=== PATIENT | male | born 1980 | race Native Hawaiian/Other Pacific Islander ===

== ENCOUNTER 2022-09-30 12:16 | Outpatient (CLI) | payer OTHER ==
[2022-09-30 13:13] LABS: PLATELET COUNT 232 K/uL (142-355)
[2022-09-30 13:31] LABS: POTASSIUM 3.8 mmol/L (3.6-5.2)
== END 2022-09-30 19:04 | disposition home or self-care (01) ==
LOC: LABW 12:16 → EDBD 12:16 → LABW 19:04
PROVIDERS: ATTEND Nurse Practitioner Family
DX: R22.41 Localized swelling, mass and lump, right lower limb (principal)
CPT/HCPCS: 36415; 80053; 85027

== ENCOUNTER 2022-09-30 15:07 | Emergency (ER) | payer OTHER ==
[~2022-09-30] VITALS: Ht 162.6 cm; Wt 102.1 kg
[2022-09-30 15:20] VITALS: BP 142/96; TEMP 98.6
== END 2022-09-30 18:07 | disposition home or self-care (01) ==
LOC: ED 15:07
DX: I82.411 Acute embolism and thrombosis of right femoral vein (principal); I82.441 Acute embolism and thrombosis of right tibial vein; I82.431 Acute embolism and thrombosis of right popliteal vein
CPT/HCPCS: 99283